=== PATIENT | male | born 1970 | race Caucasian/White ===

== ENCOUNTER 2017-12-06 06:45 | Day surgery (SDC) | payer BC ==
[~2017-12-06] VITALS: Ht 177.8 cm; Wt 97.3 kg
[2017-12-06] MEDS ORDERED: ASPIRIN 81M81 MG/TA2 PO (07:05)
[2017-12-06] MEDS ORDERED: DIOVAN HCT 12.51 TA2 PO (07:06)
[2017-12-06] MEDS ORDERED: LIPITOR 10MG10 MG PO (07:06)
[2017-12-06] MEDS ORDERED: LEXAPRO 10MG10 MG PO (07:07)
[2017-12-06] MEDS ORDERED: PROBIOTIC FORMU1 CAP PO (07:07)
[2017-12-06] MEDS ORDERED: MULTI VITAMINS1 TAB PO (07:07)
[2017-12-06] MEDS ORDERED: PROAIR HFA0.09 MG/AC IH (07:08)
[2017-12-06 08:15] VITALS: BP 113/80; PULSE 84; TEMP 97.5
[2017-12-06 08:17] VITALS: BP 137/84; PULSE 77; TEMP 97.2
[2017-12-06] MEDS ORDERED: BENEFIBER PO (08:28)
[2017-12-06 08:30] VITALS: BP 113/79; PULSE 84
[2017-12-06 09:35] VITALS: BP 124/93; PULSE 70
== END 2017-12-06 08:55 | disposition home or self-care (01) ==
LOC: SDCO 06:45
DX: K92.1 Melena (principal); K57.30 Diverticulosis of large intestine without perforation or abscess without bleeding; K63.89 Other specified diseases of intestine
CPT/HCPCS: OP; J2250; J2405; J3010; J7030

== ENCOUNTER 2019-12-18 13:23 | Emergency (ER) | payer BC ==
[~2019-12-18] VITALS: Ht 177.8 cm; Wt 90.9 kg
[~2019-12-18 13:23] MED LIST: ASPIRIN 81M81 MG/TA2 PO; BENEFIBER PO; DIOVAN HCT 12.51 TA2 PO; LEXAPRO 10MG10 MG PO; LIPITOR 10MG10 MG PO; MULTI VITAMINS1 TAB PO; PROAIR HFA0.09 MG/AC IH; PROBIOTIC FORMU1 CAP PO
[2019-12-18 13:34] VITALS: BP 142/78; PULSE 72; TEMP 97.1
[2019-12-18 14:44] LABS: COLLECTION METHOD CLEAN CATCH
[2019-12-18 14:48] LABS: MUCOUS Present /lpf; PH 8 (5-8); SQUAMOUS EPITHELIAL None Seen /hpf; URINE APPEARANCE Clear; URINE BACTERIA None Seen /hpf; URINE BILIRUBIN Negative (NEGATIVE); URINE BLOOD Negative (NEGATIVE); URINE COLOR Yellow; URINE GLUCOSE Negative (NEGATIVE); URINE KETONE Negative (NEGATIVE); URINE LEUKOCYTE ESTERASE Negative (NEGATIVE); URINE NITRATE Negative (NEGATIVE); URINE PROTEIN(semi-quant) Negative (NEGATIVE); URINE RBC 0-2 /hpf; URINE UROBILINOGEN Negative (NEGATIVE)
[2019-12-18] MEDS ORDERED: MICARDIS HCT 121 TAB PO (14:51)
[2019-12-18] MEDS ORDERED: FLEXERIL 1010 MG/TAB PO (15:11)
== END 2019-12-18 15:26 | disposition home or self-care (01) ==
LOC: COL.ER 13:23
PROVIDERS: Physician Assistant
DX: R10.9 Unspecified abdominal pain (principal); Z88.0 Allergy status to penicillin
CPT/HCPCS: J1885

== ENCOUNTER 2023-01-08 16:37 | Emergency (ER) | payer BC ==
[~2023-01-08] VITALS: Ht 177.8 cm; Wt 100.0 kg
[~2023-01-08 16:37] MED LIST changes: +FLEXERIL 1010 MG/TAB PO; +MICARDIS HCT 121 TAB PO
[2023-01-08 17:02] LABS: HEMATOCRIT 43.7 % (42.0-52.0); HEMOGLOBIN 15.4 g/dl (13.5-18.0); MEAN CELL VOLUME 90 fl (80.0-100.0); MEAN CORPUSCULAR HEMOGLOBIN 32 pg (27-31); MEAN CORPUSCULAR HGB CONC 35 g/dl (33.0-37.0); MEAN PLATELET VOLUME 10.4 fl (7.4-10.4); PLATELET COUNT 431 K/mm3 (130-400); RED BLOOD COUNT 4.84 M/mm3 (4.20-5.60); REDCELL DISTRIBUTION WIDTH-CV 13.1 % (11.5-14.5)
[2023-01-08 17:18] LABS: ALANINE AMINOTRANSFERASE 36 U/L (0-55); ALBUMIN 4.3 gm/dL (3.5-5.0); ALKALINE PHOSPHATASE 94 U/L (40-150); ANION GAP 11 mmol/L (7-16); AST,SGOT 25 U/L (5-34); BILIRUBIN,TOTAL 0.6 mg/dL (0.2-1.2); BLOOD UREA NITROGEN 13 mg/dL (8-26); CALCIUM 10.4 mg/dL (8.4-10.2); CARBON DIOXIDE 25 mmol/L (22-29); CHLORIDE 102 mmol/L (98-107); CREATININE, serum 0.86 mg/dL (0.72-1.25); GLUCOSE 78 mg/dL (70-99); POTASSIUM 3.9 mmol/L (3.5-4.5); SODIUM 138 mmol/L (136-145); TOTAL PROTEIN 8.1 gm/dL (6.2-8.1)
[2023-01-08 17:33] LABS: TROPONIN-I < 0.010 ng/mL (0.00-0.033)
[2023-01-08 18:32] LABS: BAND 1 % (0-10); EOSINOPHIL 4 % (0-4); LYMPHOCYTE 41 % (20.0-51.0); NEUTROPHILS 47 % (42.0-75.2); PLATELET ESTIMATE INCREASED (NORMAL)
[2023-01-08 19:04] VITALS: BP 143/77; PULSE 70; TEMP 97.7
== END 2023-01-08 19:00 | disposition home or self-care (01) ==
LOC: COL.ER 16:37
PROVIDERS: Emergency Medicine
DX: R07.2 Precordial pain (principal); K56.41 Fecal impaction
CPT/HCPCS: Q9967